=== PATIENT | female | born 1960 | race Caucasian/White ===

== ENCOUNTER 2018-02-24 10:33 | Outpatient (CLI) | payer OTHER ==
[~2018-02-24 10:33] MED LIST: Iopamidol 370 76% 100 ML VIAL ONE
--- NOTE | 2018-02-24 15:42 | CT ---
CT ABDOMEN WITH AND WITHOUT CONTRAST: Multiple axial tomograms are obtained through the abdomen pre- and post-IV contrast. Oral contrast w as administered. INDICATION: Right upper quadrant abdominal pain. Prior surgeries include cholecystectomy and hernia repair. FINDINGS: Lung bases are clear. The liver and spleen appear unremarkable. There are small granulomatous calcifications seen in the s pleen. No liver mass lesion seen. Post cholecystectomy changes are noted. No evidence of biliary d uct dilatation. The pancreas appears unremarkable. Adrenal glands unremarkable. There is a small low-density lesion measuring approximately 6 mm in the upper pole cortex of the right kidney. This is too small to adequately characterize but probably re presents a small cyst. The kidneys are otherwise unremarkable with no hydronephrosis or enhancing ma ss. No evidence of renal calculus. Visualized small and large bowel loops appear unremarkable. Aorta is normal caliber. No adenopathy identified. The osseous structures are unremarkable. IMPRESSION: Unremarkable CT abdomen. POS: [facility]
== END 2018-02-24 10:34 | disposition home or self-care (01) ==
LOC: SCSCT 10:33
PROVIDERS: ATTEND Internal Medicine Gastroenterology
DX: R10.11 Right upper quadrant pain (principal)
CPT/HCPCS: 74170

== ENCOUNTER 2022-03-27 11:07 | Outpatient (CLI) | payer OTHER | END 2022-03-27 11:08 | disposition home or self-care (01) | LOC: BICMAMMO 11:07 | PROVIDERS: ATTEND Obstetrics & Gynecology | DX: Z12.31 Encounter for screening mammogram for malignant neoplasm of breast (principal) | CPT/HCPCS: 77063; 77067 ==

== ENCOUNTER 2023-04-15 12:37 | Outpatient (CLI) | payer OTHER | END 2023-04-15 12:38 | disposition home or self-care (01) | LOC: BICMAMMO 12:37 | PROVIDERS: ATTEND Obstetrics & Gynecology | DX: Z12.31 Encounter for screening mammogram for malignant neoplasm of breast (principal) | CPT/HCPCS: 77063; 77067 ==

== ENCOUNTER 2024-02-03 13:38 | Outpatient (CLI) | payer OTHER | END 2024-02-03 13:39 | disposition home or self-care (01) | LOC: BICRAD 13:38 | PROVIDERS: ATTEND Specialist | DX: M25.552 Pain in left hip (principal) ==

== ENCOUNTER 2024-05-15 14:47 | Outpatient (CLI) | payer OTHER | END 2024-05-15 14:48 | disposition home or self-care (01) | LOC: BICMAMMO 14:47 | PROVIDERS: ATTEND Nurse Practitioner Family | DX: Z12.31 Encounter for screening mammogram for malignant neoplasm of breast (principal) | CPT/HCPCS: 77063; 77067 ==